=== PATIENT | female | born 1945 | race Caucasian/White ===

== ENCOUNTER → 2018-01-13 | Outpatient (CLI) | payer OTHER | LOC: BRMIMAGING 14:26 | DX: Z12.31 Encounter for screening mammogram for malignant neoplasm of breast (principal); Z80.3 Family history of malignant neoplasm of breast ==

== ENCOUNTER → 2019-01-14 | Outpatient (CLI) | payer OTHER | LOC: BRMIMAGING 08:27 ==

== ENCOUNTER → 2019-01-29 | Outpatient (CLI) | payer OTHER | LOC: BRMIMAGING 08:43 ==